=== PATIENT | female | born 1980 | race Two or more races ===

== ENCOUNTER 2017-09-04 10:05 | Outpatient (CLI) | payer OTHER | END 2017-09-04 10:07 | disposition home or self-care (01) | LOC: SONOGRAMA 10:05 | DX: N73.8 Other specified female pelvic inflammatory diseases (principal) ==

== ENCOUNTER → 2018-04-26 | Outpatient (CLI) | payer OTHER | END | disposition home or self-care (01) | LOC: NST 17:29 | DX: Z34.82 Encounter for supervision of other normal pregnancy, second trimester (principal) ==

== ENCOUNTER 2018-05-21 13:43 | Outpatient (CLI) | payer OTHER | END 2018-05-21 14:29 | disposition home or self-care (01) | LOC: NST 13:43 | DX: Z34.82 Encounter for supervision of other normal pregnancy, second trimester (principal) ==

== ENCOUNTER 2018-05-24 08:20 | Outpatient (CLI) | payer OTHER ==
[2018-05-24] MEDS ORDERED: NIFE60TA3 PO (13:31)
[2018-05-24] MEDS ORDERED: PRENATAL PLUS1 EAC1 PO (13:32)
== END 2018-05-24 09:23 | disposition home or self-care (01) ==
LOC: NST 08:20
DX: Z34.82 Encounter for supervision of other normal pregnancy, second trimester (principal)

== ENCOUNTER 2018-05-24 12:16 | Inpatient (IN) | payer OTHER ==
[~2018-05-24] VITALS: Ht 162.6 cm; Wt 82.6 kg
[2018-05-24] MEDS ORDERED: NIFE60TA3 PO (13:31)
[2018-05-24] MEDS ORDERED: PRENATAL PLUS1 EAC1 PO (13:32)
== END 2018-06-29 14:36 | disposition home or self-care (01) | DRG 832 ==
LOC: OB/GYN 12:16 → LDR 12:16 → OB/GYN 15:01
PROVIDERS: ADMIT Obstetrics & Gynecology
PROC: 4A1HXCZ Monitoring of Products of Conception, Cardiac Rate, External Approach (ICD-10-PCS; 2018-05-24)
PROC: BY4GZZZ Ultrasonography of Third Trimester, Multiple Gestation (ICD-10-PCS; principal; 2018-05-27)
DX: O34.33 Maternal care for cervical incompetence, third trimester (principal); O47.03 False labor before 37 completed weeks of gestation, third trimester; Z34.82 Encounter for supervision of other normal pregnancy, second trimester
CPT/HCPCS: 240

== ENCOUNTER 2018-07-02 10:59 | Inpatient (IN) | payer OTHER ==
[~2018-07-02] VITALS: Ht 162.6 cm; Wt 84.4 kg
[~2018-07-02 10:59] MED LIST: NIFE60TA3 PO; PRENATAL PLUS1 EAC1 PO
== END 2018-07-20 16:52 | disposition home or self-care (01) | DRG 831 ==
LOC: OB/GYN 10:59
PROVIDERS: ADMIT Obstetrics & Gynecology
PROC: 4A1HXCZ Monitoring of Products of Conception, Cardiac Rate, External Approach (ICD-10-PCS; principal; 2018-07-02)
PROC: BY4GZZZ Ultrasonography of Third Trimester, Multiple Gestation (ICD-10-PCS; 2018-07-08)
PROC: BU4CZZZ Ultrasonography of Uterus and Ovaries (ICD-10-PCS; 2018-07-08)
DX: O30.003 Twin pregnancy, unspecified number of placenta and unspecified number of amniotic sacs, third trimester (principal); O60.03 Preterm labor without delivery, third trimester; O47.03 False labor before 37 completed weeks of gestation, third trimester; Z34.83 Encounter for supervision of other normal pregnancy, third trimester

== ENCOUNTER 2018-08-14 09:47 | Inpatient (IN) | payer OTHER ==
[~2018-08-14] VITALS: Ht 162.6 cm; Wt 2.7 kg
[2018-08-24] MEDS ORDERED: KETO10TA2 PO (10:39)
== END 2018-08-24 12:22 | disposition home or self-care (01) | DRG 788 ==
LOC: OB/GYN 08-20 15:15 → O/R 08-21 06:08 → OB/GYN 08-21 06:08
PROVIDERS: ADMIT Obstetrics & Gynecology
PROC: 4A1HXCZ Monitoring of Products of Conception, Cardiac Rate, External Approach (ICD-10-PCS; 2018-08-21)
PROC: 10D00Z1 Extraction of Products of Conception, Low, Open Approach (ICD-10-PCS; principal; 2018-08-21 07:00)
DX: O82 Encounter for cesarean delivery without indication (principal); O64.1XX1 Obstructed labor due to breech presentation, fetus 1; O30.003 Twin pregnancy, unspecified number of placenta and unspecified number of amniotic sacs, third trimester; Z3A.37 37 weeks gestation of pregnancy; Z37.2 Twins, both liveborn